=== PATIENT | male | born 1995 | race Caucasian/White ===

== ENCOUNTER 2024-05-04 10:25 | Outpatient (AMB) | payer OTHER, SELFPAY ==
--- NOTE | 2024-05-04 10:25 | A.OFFVIS_ITS ---
Intake Visit Reasons: splinter in finger Intake Note: This patient presents for splinter in finger. Pt c/o; splinter in finger. 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 He says that about a year ago, he hurt his 4th finger on the right with a splinter while working with a shovel. He says he went to the ER at that time but he was told that they could not remove the splinter. He has had this chronic swelling and occasional bleeding from the area since then. She denies any drainage. He does describe discomfort on this finger. [facility] Medical History (Updated 05/04/24 @ 10:58 by Davis Gan MD) Foreign body (FB) in soft tissue Surgical History No pertinent past surgical history Family History Other Family history unknown Social History Unable to assess alcohol history related to: Unknown Alcohol intake: never Patient Tobacco Use Status: Never used Tobacco Review of Systems Const Denies chills and Denies fever(s) Card Denies chest pain, Denies dyspnea and Denies dyspnea on exertion Resp Denies cough, Denies dyspnea and Denies dyspnea on exertion GI Denies hematochezia and Denies change in bowel habits Denies hematuria and Denies difficulty urinating Musc Denies back pain and Denies limited range of motion Neuro Denies focal weakness and Denies convulsions Psych Denies depression and Denies mood swings Physical Exam Const General: comfortable and no acute distress Orientation/consciousness: patient oriented x3 Neck Neck: Yes no lymphadenopathy Resp Auscultation: clear to auscultation bilaterally Cardio Rhythm: regular rhythm GI Palpation (GI): Soft to palpation, nontender and no guarding Neuro General: patient oriented x3 Extrem Other: Fourth finger on the middle phalanx on the palmar aspect -area of induration, and thickening, about 5 mm, dry Office Procedures Office Procedure Office Procedure Documentation Office Procedure Documentation: Preop diagnosis: Foreign body, splinter, 4th finger right Postop diagnosis: The same Procedure: Removal of foreign body from the soft tissue of the 4th finger under local anesthesia The 4th finger on the right was prepped and draped. I used lidocaine to infiltrate the area on the palmar aspect of the middle phalanx. I made an elliptical incision on the area of induration of thickened skin using blade 15. I carried this down through the full-thickness of the skin and subcutaneous fat. This thickened area was excised. I then explored the subcutaneous layer and there was note of a linear, 1.3 cm long splinter. This was removed I irrigated the area and closed the incision with full-thickness nylon 3-0 simple interrupted sutures. Dressings were applied. He tolerated procedure well. There were no immediate complications. There was minimal blood loss. Assessment & Plan Assessment & Plan (1) Foreign body (FB) in soft tissue: Code(s): M79.5 - Residual foreign body in soft tissue Category: Medical Plan: He is certain that there was a splinter that was left in the finger from last year. He wants this removed. I explained the technique of removal of this foreign body under local anesthesia. I explained the risks including but not limited to bleeding, infections, injury to tendon, nerve or vessels as well as the benefits and alternatives The splinter was removed without difficulty. This was about a 1.3 cm long splinter. He tolerated the procedure well. He was given wound care instructions. I will see him for removal of the sutures and about 2 weeks. Coding Level of Care Code New Pt Level 3 (12497) Diagnoses Foreign body (FB) in soft tissue M79.5
== END 2024-05-04 11:25 | disposition home or self-care (01) ==
PROVIDERS: Visit Provider Surgery
DX: M79.5 Residual foreign body in soft tissue (principal)
CPT/HCPCS: 99203

== ENCOUNTER → 2024-05-04 10:25 | Outpatient (BNVA) | payer OTHER, SELFPAY | PROVIDERS: Visit Provider Surgery ==

== ENCOUNTER 2024-05-26 16:22 | Outpatient (REF) | payer OTHER, SELFPAY ==
--- NOTE | ~2024-05-26 | XR_ITS ---
EXAMINATION: XR LUMBOSACRAL SPINE CLINICAL INFORMATION: M54.9 - Dorsalgia, unspecified. COMPARISON: None available. TECHNIQUE: 3 views of the lumbosacral spine. FINDINGS: Minimal levoscoliosis of the lumbar spine. Degenerative changes in the bilateral sacroiliac joints with sclerosis, left greater than right. Facet arthritis in the lower lumbar spine. Anterior compression deformities with loss of height of T12 and L1 vertebral bodies. Anterior loss of height with inferior endplate concavity of L2. Moderate degenerative changes with loss of disc space height at L1-L2, and L2-L3. Loss of disc space height with degenerative changes at L5-S1. XR/XR lumbar spine 2-3V IMPRESSION: Facet arthritis in the lower lumbar spine. Anterior compression deformities with loss of height of T12 and L1 vertebral bodies. Anterior loss of height with inferior endplate concavity of L2. Moderate degenerative changes with loss of disc space height at L1-L2, and L2-L3. Loss of disc space height with degenerative changes at L5-S1. This study was presented today to May 27, 2024 for interpretation. Stat results provided at this time as requested by referring provider. Electronically signed by: Merlyn Walker MD 05/27/2024 11:35 AM DARCIE
== END 2024-05-26 16:23 | disposition home or self-care (01) ==
LOC: HO.XRAY 16:22
PROVIDERS: Visit Provider Surgery
DX: M54.9 Dorsalgia, unspecified (principal); M79.5 Residual foreign body in soft tissue
CPT/HCPCS: 72100

== ENCOUNTER 2024-06-18 15:09 | Outpatient (AMB) | payer OTHER, SELFPAY ==
--- NOTE | 2024-06-18 14:57 | MHC.PC.OV ---
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 Patient endorses back pain for several years with worsening symptoms during the past 2 months. He recalls 2 recent inciting events. The 1st episode involved him picking up his 25 lb 2-year-old son. He immediately felt a sharp pain in his left lower back and fell to the ground. Shortly after that he was working in the backyard and had the recurrence of the same sharp pain and fell to the ground. He was couch bound for about 4 weeks. He did go to urgent care and got prednisone and muscle relaxers which did not help. While the acute pain improved, he continues to have daily moderate to severe pain in the left lower back that radiates down his leg to his foot. It is associated with infrequent tingling and burning down the left leg. He bought a house in the fall, and he believes he also may have injured his back doing all of the moving. 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 He lifts things frequently. He saw a chiropractor for 7 sessions within the past 3 months without improvement. As above he tried bedrest, prednisone and muscle relaxers. Pain is worse when he is lying down trying to sleep. He had an x-ray of the lumbar spine completed on 05/26/2024 which was abnormal showing facet arthritis in the lower lumbar spine, anterior compression deformities with loss of disc height at T12 and L1, anterior loss of height with inferior endplate concavity of L2, moderate degenerative changes with loss of disc height at L1-L2 and L2-L3 and loss of disc height with degenerative changes at L5-S1. Patient denies family history of degenerative disc disease, but he was told that prior treatment for lymphoma (chemo and radiation at age 7) could cause back problems in the future. ROS: Constitutional: No unexplained weight loss, fever, chills, fatigue or night sweats. Neurologic: No loss of bowel or bladder control. No weakness. +paresthesias per HPI Musculoskeletal: See HPI Physical exam: Neurologic: No focal neurological deficits. Symmetric patellar reflexes. Moves all extremities spontaneously. Sensation intact bilaterally. Normal gait. Musculoskeletal: No midline spinal tenderness. Tender left lower back and left lumbar paraspinal muscles. Patient has decreased lumbar flexion and extension and winces with painful movements. Positive left straight leg raise. Lower extremity strength 5/5 bilaterally. Extremities: Warm and well perfused. No clubbing, cyanosis or edema. [facility] Medical History (Updated 06/18/24 @ 16:11 by CHADWICK Conway) History of lymphoma Routine physical examination Abnormal x-ray of lumbar spine Lumbar radiculitis Foreign body (FB) in soft tissue Surgical History (Updated 06/18/24 @ 15:36 by Mara Recio CMA) History of biopsy No pertinent past surgical history Family History (Updated 06/18/24 @ 15:25 by Mara Recio CMA) Maternal Grandfather Diabetes Maternal Grandmother Diabetes Paternal Grandfather Diabetes Maternal Grandmother Diabetes Other Family history unknown Social History Housing: House Unable to assess alcohol history related to: Unknown Alcohol intake: never Patient Tobacco Use Status: Never used Tobacco e-Cigarette/Vaping Use: Never Used service: No Current occupational status: employed 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 Current occupational exposures/hazards: No Cognitive needs: No Hearing needs: No Vision needs: No Questionnaire Thrive Questionnaire Date Thrive assessed: 06/18/24 I am a: Patient What is your living situation today?: I have a steady place to live Within the past 12 months, did the food you bought not last and you didn't have the money to get more?: Never true Within the past 12 months, did you worry whether your food would run out before you got money to buy more?: Never true Do you have trouble paying for medicines?: No Do you have trouble getting transportation to medical appointments?: No Do you have trouble paying your heating and electricity bill?: No Do you have trouble taking care of your child, family member or friend?: No Do you have trouble with day-to-day activities such as bathing, preparing meals, shopping, managing finances, etc.?: No Are you currently unemployed and looking for a job?: No Are you interested in more education?: No Please select the resources that you would like help with: None Currently or been in a relationship where the following occur: No concerns reported THRIVE Score: 0 AUDIT C Alcohol Use Questionnaire (AUDIT-C) 1. How often do you have a drink containing alcohol?: Monthly or less 2. How many drinks containing alcohol do you have on a typical day when you are drinking?: 1 or 2 3. How often do you have six or more drinks on one occasion?: Never Total Score: 1 VALERIE-7 AMB Questionnaire VALERIE-7 Date VALERIE - 7 assessed: 06/18/24 Feeling nervous, anxious, or on edge: 0 = Not at all Not being able to stop or control worryin = Not at all Worrying too much about different things: 0 = Not at all Trouble relaxin = Not at all Being so restless that it is hard to sit still: 0 = Not at all Becoming easily annoyed or irritable: 0 = Not at all Feeling afraid as if something awful might happen: 0 = Not at all Total VALERIE-7 score (0-4 normal; 5-9 mild; 10-14 moderate; 15-21 severe): 0 Source: Developed by Drs. Saurabh Alaniz, Paola Fermin, Jonathan Hurst and colleagues, with an educational sasha from [employer]. VALERIE-7 Assessment Billing VALERIE-7 Assessment Tool: VALERIE-7 Assessment 04769 Physical exam (Primary Care) Vital Signs: Last Vital Signs Pulse 73 06/18/24 15:25 BP 114/74 06/18/24 15:25 Pulse Ox 96 06/18/24 15:25 Oxygen Delivery Method Room Air 06/18/24 15:25 BMI result Body Mass Index 31.0 Tobacco/Smoking Status: Tobacco use Status Tobacco use date assessed 06/18/24 06/18/24 14:58 Patient Tobacco Use Status Never used Tobacco 06/18/24 14:58 e-Cigarette/Vaping Use Never Used 06/18/24 15:29 Thrive Assessment: Date of Thrive Assessment Date Thrive assessed 06/18/24 06/18/24 14:58 Currently or been in a relationship where the following occur: No concerns reported Coding Level of Care Code New Pt Level 4 (04830) Complex EM visit Add On G2211 Diagnoses Lumbar radiculitis M54.16 Abnormal x-ray of lumbar spine R93.7 Additional Codes VALERIE-7 Assessment Billing - VALERIE-7 Assessment Tool: VALERIE-7 Assessment 98388 ([id number]) Assessment & Plan Assessment & Plan (1) Lumbar radiculitis: Code(s): M54.16 - Radiculopathy, lumbar region Category: Medical (2) Abnormal x-ray of lumbar spine: Code(s): R93.7 - Abnormal findings on diagnostic imaging of other parts of musculoskeletal system Category: Medical Plan Given abnormal x-ray and persistent symptoms despite conservative treatments including chiropractic treatment, steroids and muscle relaxers within the past 3 months I have ordered an MRI of the lumbar spine. We discussed referral to physiatry verses neurosurgery pending results. Patient was instructed to call if he does not hear about scheduling within 2 weeks. He will also schedule a physical exam and have fasting labs completed prior to this. He declines pain medications. Orders: Orders Lipid Panel Today M54.16 - Radiculopathy, lumbar region, Z00.00 - Encounter for general adult medical examination without abnormal findings, Z13.6 - Encounter for screening for cardiovascular disorders Comprehensive Met. Panel Today M54.16 - Radiculopathy, lumbar region, Z00.00 - Encounter for general adult medical examination without abnormal findings, Z13.6 - Encounter for screening for cardiovascular disorders MR lumbar spine wo con Today M54.16 - Radiculopathy, lumbar region, R93.7 - Abnormal findings on diagnostic imaging of other parts of musculoskeletal system Complete Blood Count Auto Diff Today M54.16 - Radiculopathy, lumbar region, Z00.00 - Encounter for general adult medical examination without abnormal findings, Z13.6 - Encounter for screening for cardiovascular disorders
[2024-06-18 15:25] VITALS: BP 114/74; PULSE 73; O2SAT 96; BMI 31.0
== END 2024-06-18 16:04 | disposition home or self-care (01) ==
PROVIDERS: PCP Physician Assistant Medical; Visit Provider Physician Assistant Medical
DX: M54.16 Radiculopathy, lumbar region (principal); R93.7 Abnormal findings on diagnostic imaging of other parts of musculoskeletal system

== ENCOUNTER → 2024-06-18 15:09 | Outpatient (BNVA) | payer OTHER, SELFPAY | PROVIDERS: PCP Physician Assistant Medical; Visit Provider Physician Assistant Medical | DX: M54.16 Radiculopathy, lumbar region (principal); R93.7 Abnormal findings on diagnostic imaging of other parts of musculoskeletal system | CPT/HCPCS: 96127 ==

== ENCOUNTER → 2024-07-20 17:35 | Outpatient (BNV) | payer OTHER, SELFPAY | PROVIDERS: PCP Physician Assistant Medical; Visit Provider Radiology Diagnostic Radiology | DX: M51.26 Other intervertebral disc displacement, lumbar region (principal); M47.895 Other spondylosis, thoracolumbar region | CPT/HCPCS: 72148 ==

== ENCOUNTER 2024-07-20 17:49 | Outpatient (REF) | payer OTHER, SELFPAY | END 2024-07-20 17:50 | disposition home or self-care (01) | LOC: HO.MRI 17:49 | PROVIDERS: PCP Physician Assistant Medical; Visit Provider Physician Assistant Medical | DX: M54.16 Radiculopathy, lumbar region (principal) | CPT/HCPCS: 72148 ==

== ENCOUNTER 2024-07-29 08:47 | Outpatient (AMB) | payer OTHER, SELFPAY ==
--- NOTE | 2024-07-29 08:57 | HO.SPINEOV ---
Vital Signs 07/29/24 09:04 Height 5 ft 11 in Weight 210 lb BMI 29.3 Intake Visit Reasons: radiculopathy lumbar region Intake Note: Mr. Wilson is here today c/o low back pain. 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 He is a pleasant 29-year-old male who comes in today with a chief complaint of low back pain and shooting pain down his left lower extremity. He reports this has been ongoing since about April of 2024. He states that he was moving from a apartment to a home, and attempted to lift a very heavy shed with 5 of his friends. When doing this he felt a pop in his back and shooting pain down his left leg. He feels the pain was fairly intense for the next couple of months, however most recently about a month ago the pain reduced by about half, and fairly significant numbness began to set in. The patient reports mild hypoesthesia over his entire left leg down to his toes. He also reports burning over the back side of his left lower extremity. When describing the pain he runs his hand over his posterior buttocks down his posterior thigh over the posterior gastrocnemius to the inferior/lateral aspect of his left foot. He denies any bowel/bladder issues associated with his symptoms.. He denies any saddle anesthesia. He reports that he has taken pain medication and muscle relaxers to help mitigate the pain, however these only temporized his symptoms. He was attempted to go to the chiropractor who was unable to provide much relief for him. He states that positionally, sitting for prolonged periods of time worsens his pain. He feels that walking and/or moving helps to alleviate his pain. 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 Social hx: The patient does not smoke, reports no substance use. Medications: None currently. Allergies: NKDA. Physical exam: The patient has 5/5 strength in his upper and lower extremities. It does elicit pain to full strength testing of his left iliopsoas and left knee extension. He ambulates with an antalgic gait favoring the right side. He has diffuse hypoesthesia over the left lower extremity compared to the right, however this is generally speaking rather mild. His reflexes are 2+ intact. (+) left-sided straight leg raise. (-) Clemens's. (-) clonus. Imaging review: MRI of the lumbar spine completed on 07/20/2024 here at [facility] shows a large disc herniation at L5-S1 causing severe compression of the left-sided exiting nerve root. Impression: Adam is a pleasant 29-year-old male who comes in today with a chief complaint of low back pain and shooting pain down his left lower extremity. He identifies an inciting incident as attempting to lift a very heavy shed with 5 if his friends when moving from an apartment to a house back in April. As a result of this lifting injury he began having shooting pain down his left lower extremity which persists to this visit. About 1 month ago his pain slightly subsided, but was accompanied by newer onset numbness which he feels diffusely throughout his left lower extremity. In addition to this he has a burning type pain that runs in an L5/S1 distribution down his left leg. I had Dr. Costa evaluate the patient alongside me today, and after reviewing his imaging and speaking with the patient Dr. Costa offered the patient a left-sided L5-S1 microdiskectomy to address his left leg pain. The patient understands that we are unsure to what extent his numbness will be relieved by this procedure. Adam was given risk and benefits of surgery including but not limited to infection, hematoma, nerve injury, durotomy, weakness, bowel/bladder injury, persistent pain, as well as the option to continue with conservative treatment and patient wishes to proceed with surgery. They are aware they should stop NSAIDs 7 days prior to surgery. All questions were answered to the best of our ability. If there is anything about this patients medical history that we have overlooked or concerns you have about us proceeding with surgery we would appreciate any input you can offer. Thank you for allowing us to care for your patient. The total time spent with this visit with this patient was 45 minutes reviewing history, physical exam, MRI imaging review, and implementation of treatment plan or further diagnostic testing Issac Costa MD,PhD [facility] Coding Level of Care Code New Pt Level 4 (42164) Diagnoses Left lumbosacral radiculopathy M54.17
[2024-07-29 09:04] VITALS: BMI 29.3
== END 2024-07-29 10:01 | disposition home or self-care (01) ==
PROVIDERS: PCP Physician Assistant Medical; Referring Provider Physician Assistant Medical; Visit Provider Physician Assistant
DX: M54.17 Radiculopathy, lumbosacral region (principal)
CPT/HCPCS: 99204

== ENCOUNTER 2024-08-18 10:49 | Day surgery (SDC) | payer OTHER, SELFPAY ==
[2024-08-10 09:32] VITALS: BMI 29.3
--- NOTE | ~2024-08-18 | FL_ITS ---
EXAMINATION: FL GUIDANCE ONLY HISTORY: L5-S1 Microlumbar discectomy Left COMPARISON: None available. TECHNIQUE: Fluoroscopy time: 3.8 seconds. Cumulative Dose: 2.4853 mGy. DAP: 0.8518 mGym2 Images: 1. FINDINGS: Single fluoroscopic spot film of the lumbar spine in the lateral projection demonstrates a probe directed toward the L5-S1 intervertebral disc space from a posterior approach. FL/FL guidance in OR IMPRESSION: Fluoroscopy during procedure. Please see procedure report for additional information. Electronically signed by: Saurabh Garcia MD 08/18/2024 02:20 PM EDT
[2024-08-18] MEDS: methocarbamoL 750 MG TABLET PO (11:00)
[2024-08-18] MEDS: Lactated Ringers 1,000 ML 100 ML IVCONT (11:01)
[2024-08-18] MEDS: Gabapentin 300 MG CAPSULE PO (11:01)
[2024-08-18 11:07] VITALS: BP 146/88; PULSE 81; RESP 18; TEMP 36.6; O2SAT 98; BMI 29.6
--- NOTE | 2024-08-18 12:14 | MHC.SHP ---
Pre-Procedural Eval Section A - 24 Hr Update-Section A only Date of Service: 08/18/24 The patient is an INPATIENT: No Changes since office visit: No Cold of Flu in the past 2 weeks, No New Medical Problems, No Changes in Medication and No Patient answered all questions The patient has been examined within 24 hours of the surgical procedure. The History & Physical has been completed within 30 days and I have reviewed it.: No Section B - Complete if H&P > 30 days Chief Complaint: Radiculopathy, lumbosacral region Allergies: Allergies Allergy/AdvReac Type Severity Reaction Status Date / Time No Known Allergies Allergy Verified 07/29/24 09:06 Review of Systems Sugical H&P ROS: Negative: Constitution, Cardiovascular, Respiratory, Neurological, Psychiatric, Hem-Onc, Allergic/Immunologic, Gastrointestinal, Genitourinary, Musculoskeletal, Integumentary, Endocrine and Eyes/Ears/Nose/Throat Exam Surgical H&P Exam: Normal: HEENT, Normal: Heart, Normal: Lungs, Normal: Extremities, Normal: Abdomen, Normal: Skin and Normal: Neurological (awake, alert,oriented x 3 ) Plan Diagnosis/Plan: Unchanged left L5-S1 microdiskectomy Time Spent With Patient Time: Total time managing care of this patient today __5__ minutes.
--- NOTE | 2024-08-18 12:15 | P.DS_ITS ---
DS: Providers Provider Date of Service: 08/18/24 Date of discharge: 08/18/24 Primary care physician: CHADWICK Conway Admitting clinician: Daniel Costa DS: Diagnosis Discharge Diagnosis (1) Left lumbosacral radiculopathy: Status: Acute DS: Summary Time Attestation Discharge Coordination Time (in mins): 3 Quality: Safe Use of Opioids Does Pt have an Active Cancer Diagnosis on the Problem List?: No Quality: Stroke Does the patient have a stroke diagnosis?: No Physical Exam Vital Signs: Vital Signs: Last Vital Signs Temp 97.8 F 08/18/24 11:07 Pulse 81 08/18/24 11:07 Resp 18 08/18/24 11:07 BP 146/88 H 08/18/24 11:07 Pulse Ox 98 08/18/24 11:07 O2 Del Method Room Air 08/18/24 11:07 BMI result Body Mass Index 29.6 Discharge Plan Discharge Patient Disposition: Home, Self-Care Referrals: Guerline Santos PA [Primary Care Provider] - 1 Week Discharge Medications: New docusate sodium [Colace] 100 mg capsule 100 mg PO BID Qty: 20 0RF oxycodone 5 mg tablet 5 mg PO Q4H PRN (Reason: pain) Qty: 20 0RF Rx Instructions: Partial Fill upon patient request. Discharge Orders: Discharge Order (Routine); Ordered 08/18/24 Ordered By: Stone Villafuerte Diet: Advance to usual diet Activity on Discharge: As tolerated Activity Restrictions/Additional Instructions: After your spinal surgery we ask you to observe the following restrictions/guidelines: Activity: It is normal to feel some discomfort as you increase your activity, but that will improve with time. We ask you avoid heavy lifting or acitivities that cause pain. As a general rule, 8lbs is a safe limit for lifting right after surgery. Walk as much as you feel comfortable but not to exhaustion. You will feel extra tired the first few days after surgery. Stay well hydrated. It is OK to walk up and down stairs You may return to driving when you are off narcotics (such as vicodin, oxycodone, dilaudid, etc), and you are back to normal functional capacity. If you have any concerns please check with office before driving. Return to work is specific to each patient and each surgery, so please speak with your doctor/PA at first follow up. Please bring paperwork such as FMLA at that time if you need it filled out. Medications: For optimum pain control, it is best to start with a combination of 500 mg of Tylenol every 4 hours with 600 mg of Motrin every 8 hours, and use narcotics as needed in between for breakthrough pain. We will give you a short supply of narcotics after surgery (usually one weeks worth). If you need more please call the office but do not use more than prescribed. You will need to give our office 48 hours notice if you need narcotics refilled and we do not fill narcotics on weekends or evenings. If you are on a narcotic, it is a good idea to take a stool softener such as colace or senna to avoid constipation If you take blood thinner such as aspirin, Plavix, Coumadin, Effient, Eliquis etc for conditions such as Afib, DVT, Pulmonary embolus, coronary disease, stents etc please speak with your surgeon about specific details as to when you can resume these medications. You can resume NSAIDs on post op day 1 (eg: Motrin, Naproxen, etc). Follow up: Please call the office, , after surgery to arrange a 3 week follow up for wound check. Wound Care: You may remove your dressing on the first day after surgery. ?You may ?leave open to air. Please do not remove the steri strips underneath. they will fall off on their own in one week. IT IS NORMAL FOR THE WOUND TO OOZE OR BE BLOODY FOR A FEW DAYS AFTER SURGERY. ?IF THIS HAPPENS JUST PLACE NEW DRESSING OVER IT TO AVOID STAINING CLOTHES. You may shower on post op day # 1 We ask that you do not let the water soak the wound. If it does get wet, just towel dry lightly. Please do not scrub your incision or place any type of chemical/ointment on the wound. No tub baths, pools or jacuzzis for one month. If you have any leaking or redness from your wound, or fevers, please call office Print Language: Nepali
--- NOTE | 2024-08-18 12:36 | P.CONAN_ITS ---
Documented by User: Annabelle Wellington NP 08/11/24 13:59 HPI - Anesthesia Eval Consult details Narrative: 29yo M for Left L5-S1 MicroLumbar discectomy PMFSH Active Problems Active Problems: All Active Problems Left lumbosacral radiculopathy (Acute) History of lymphoma (Acute) Routine physical examination (Acute) Abnormal x-ray of lumbar spine (Acute) Foreign body (FB) in soft tissue (Acute) Past Medical History Medical History (Updated 08/10/24 @ 09:32 by Lou Garber RN) Left lumbosacral radiculopathy History of lymphoma Routine physical examination Abnormal x-ray of lumbar spine Lumbar radiculitis Foreign body (FB) in soft tissue Family History Family History (Updated 06/18/24 @ 15:25 by Mara Recio CMA) Maternal Grandfather Diabetes Maternal Grandmother Diabetes Paternal Grandfather Diabetes Maternal Grandmother Diabetes Other Family history unknown Surgical History Surgical History (Updated 06/18/24 @ 15:36 by Mara Recio CMA) History of biopsy No pertinent past surgical history Social History Social History Housing: House Are you a primary home care and home health aides teacher to a significant other at home: No Do you presently have visiting nurse or other home services: No Unable to assess alcohol history related to: Unknown Alcohol intake: never Patient Tobacco Use Status: Never used Tobacco e-Cigarette/Vaping Use: Never Used Use of substances other than those prescribed or required for medical reasons: No Have you been hit, kicked, punched, or otherwise hurt by someone within the past year? 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 Current occupational exposures/hazards: No Cognitive needs: No Hearing needs: No Vision needs: No Meds Allergies Allergy/AdvReac Type Severity Reaction Status Date / Time No Known Allergies Allergy Verified 07/29/24 09:06 Exam Height,Weight and Vital Signs: Height 5 ft 11 in Weight 95.254 kg Assessment and Plan Assessment Anesthesia Assessment: Chart Reviewed Documented by User: Nancy Catalan DO 08/18/24 12:38 PMFSH Past Medical History Medical History (Updated 08/10/24 @ 09:32 by Lou Garber RN) Left lumbosacral radiculopathy History of lymphoma Routine physical examination Abnormal x-ray of lumbar spine Lumbar radiculitis Foreign body (FB) in soft tissue Family History Family History (Updated 06/18/24 @ 15:25 by Mara Recio CMA) Maternal Grandfather Diabetes Maternal Grandmother Diabetes Paternal Grandfather Diabetes Maternal Grandmother Diabetes Other Family history unknown Family history of problems with anesthesia: No Surgical History Surgical History (Updated 06/18/24 @ 15:36 by Mara Recio CMA) History of biopsy No pertinent past surgical history History of Problems with Anesthesia: No Social History Social History Housing: House Are you a primary home care and home health aides teacher to a significant other at home: No Do you presently have visiting nurse or other home services: No Unable to assess alcohol history related to: Unknown Alcohol intake: never Patient Tobacco Use Status: Never used Tobacco e-Cigarette/Vaping Use: Never Used Use of substances other than those prescribed or required for medical reasons: No Have you been hit, kicked, punched, or otherwise hurt by someone within the past year? 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 Current occupational exposures/hazards: No Cognitive needs: No Hearing needs: No Vision needs: No Meds Allergies Allergy/AdvReac Type Severity Reaction Status Date / Time No Known Allergies Allergy Verified 07/29/24 09:06 Exam Exam Date and Time: 08/18/24 1235 Height,Weight and Vital Signs: Height 5 ft 11 in Weight 95.254 kg Vital Signs Temperature 97.8 F 08/18/24 11:07 Pulse Rate 81 08/18/24 11:07 Respiratory Rate 18 08/18/24 11:07 Blood Pressure 146/88 H 08/18/24 11:07 Pulse Oximetry 98 08/18/24 11:07 Oxygen Delivery Method Room Air 08/18/24 11:07 Temperature 97.8 F 08/18/24 11:07 Pulse Rate 81 08/18/24 11:07 Respiratory Rate 18 08/18/24 11:07 Blood Pressure 146/88 H 08/18/24 11:07 Pulse Oximetry 98 08/18/24 11:07 Oxygen Delivery Method Room Air 08/18/24 11:07 Airway Mallampati Class: I TM Dist: >3cm Neck ROM: Full Loose/Missing/Broken Teeth: No (patient denies any loose or broken teeth) Heart: S1S2 Lungs: CTAB Assessment and Plan Assessment Anesthesia Assessment: Anesthesia Plan Discussed and Chart Reviewed Final Anesthetic Review Family History of Problems with Anesthesia: No History of Problems with Anesthesia: No NPO: Yes ASA Class: II Final Preanesthetic Review: No Changes in Pt Med Stat, Meds/Allgs Chart Reviewed, Consent Obtained/Reviewed and Anes Risks/Benef Reviewed Patient Risk: Low Procedure Risk: Low Anesthetic Plan Anesthetic Plan: GA and Agree w/ Assess. and Plan Disposition: Standard PACU
--- NOTE | 2024-08-18 13:20 | W.PM.OPN ---
Operative Note Operative Note Date of Service: 08/18/24 Narrative: Preoperative diagnosis: Left S1 radiculopathy due to disc herniation Postoperative diagnosis: Same Procedure: Left L5-S1 microdiskectomy with microscope Surgeon: Daniel Costa MD, PhD Oriental Rug Repairer: madeleine Colmenares This patient is suffering from a left S1 radiculopathy due to a large extruded disc herniation compressing the left S1 nerve root. Conservative treatment failed. The patient was offered a lumbar microdiskectomy to decompress the nerve root. The procedure complications were explained. The patient was consented. The patient was brought to the operating room and endotracheally intubated. The patient was turned in a prone position on the Ronnie frame. Prepping and draping was done followed by time-out. A mid lumbar incision was made followed by release of the paravertebral muscles on the left side to expose the L5-S1 interspace. An intraoperative x-rays obtained to confirm the correct level. The microscope was brought in. A left L5 laminotomy was done followed by opening of the flavum ligament. The S1 nerve root was identified and retracted medially to expose the L5-S1 disc space. I could palpate a large disc herniation medial from the S1 nerve root, which I carefully removed with a pituitary. A piece of approximately 3 x 2 cm was removed. The disc space was inspected and any residual disc fragments were removed. More disc material was found lateral from the S1 nerve root and resected. This resulted in an excellent decompression of the S1 nerve root. The reddish discoloration of the nerve root returned to normal Hemostasis was done. The microscope was removed. Marcaine was injected intramuscularly.The incision was closed in two layers. Steri-Strips used to approximate the incision. An op-site were taken there was used to cover the incision. All sponge and needle counts were correct. Patient was extubated and transported in stable condition to recovery room. this procedure was done with the aid of a physician bilingual medical assistant who performed the initial exposure until the microscope was brought in and performed the closure of the incision. Anesthesia: General Blood loss: 10 mL Complications: None Specimen: None Surgical time: 45 min Disposition: Discharge home
[2024-08-18 14:16] VITALS: BP 99/57; PULSE 77; RESP 16; TEMP 36.8; O2SAT 96
[2024-08-18 14:21] VITALS: BP 107/56; PULSE 77; RESP 16; O2SAT 100
[2024-08-18 14:26] VITALS: BP 102/66; PULSE 73; RESP 20; O2SAT 99
[2024-08-18 14:31] VITALS: BP 123/66; PULSE 74; RESP 20; O2SAT 99
[2024-08-18 14:46] VITALS: BP 115/65; PULSE 84; RESP 20; O2SAT 97
[2024-08-18] MEDS: oxyCODONE HCl Immed Release 5 MG TABLET PO (14:46)
== END 2024-08-18 15:09 | disposition home or self-care (01) ==
PROVIDERS: PCP Physician Assistant Medical; Visit Provider Neurological Surgery
PROC: (CPT 63030; principal; 2024-08-18 13:00)
DX: M51.17 Intervertebral disc disorders with radiculopathy, lumbosacral region (principal); M54.50 Low back pain, unspecified; R26.89 Other abnormalities of gait and mobility; Z85.72 Personal history of non-Hodgkin lymphomas
CPT/HCPCS: 63030; J0131; J0690; J1100; J1885; J2003; J2250; J2405; J2704; J3010

== ENCOUNTER → 2024-08-18 10:49 | Outpatient (BNV) | payer OTHER, SELFPAY | PROVIDERS: PCP Physician Assistant Medical; Visit Provider Neurological Surgery | DX: M54.17 Radiculopathy, lumbosacral region (principal) | CPT/HCPCS: 63030; 99499 ==

== ENCOUNTER 2024-08-28 08:32 | Outpatient (REF) | payer OTHER, SELFPAY ==
[2024-08-28 11:19] LABS: MANUAL DIFF FLAG NO
[2024-08-28 11:31] LABS: Basophils Percent Auto 0.5 % (0-2); Eosinophils Absolute Auto 0.1 X10*3/uL (0.0-0.4); Hematocrit 39.1 % (42.0-52.0); Hemoglobin 12.9 g/dl (14.0-18.0); Imm Gran Abs Auto 0.03 X10*3/uL (0.00-0.03); Imm Gran Pct Auto 0.5 % (0.0-0.4); Lymphocytes Absolute Auto 1.1 X10*3/uL (1.2-4.9); Lymphocytes Percent Auto 17.4 % (20-40); Mean Corpuscular Volume 87.9 fL (80.0-98.0); Mean Platelet Volume 10.5 fL (9.4-12.4); Monocytes Absolute Auto 0.6 X10*3/uL (0.1-1.2); Monocytes Percent Auto 9.6 % (2-11); Neutrophils Absolute Auto 4.6 x10*3/uL (2.0-8.3); Platelet Count 289 X10*3/uL (160-400); Red Blood Count 4.45 X10*6/uL (4.60-5.80); Red Cell Distribution Width 13.3 % (11.0-16.0); White Blood Count 6.6 X10*3/uL (4.8-10.8)
[2024-08-28 11:35] LABS: Alanine Aminotransferase 34 U/L (0-40); Albumin Level 4.4 g/dL (3.5-5.0); Alkaline Phosphatase 86 U/L (39-117); Anion Gap 10 (12-20); Aspartate Amino Transferase 28 U/L (5-37); Bilirubin Total 0.6 mg/dL (0.0-1.0); Blood Urea Nitrogen 15 mg/dL (9-16); Calcium 9.8 mg/dL (8.4-10.2); Carbon Dioxide 28 mmol/L (22-29); Chloride 105 mmol/L (96-108); Cholesterol 177 mg/dL (<200); Estimated Glomerular Filt Rate > 60; Glucose Random 94 mg/dL (60-115); HDL Cholesterol 76 mg/dL (>40); LDL Cholesterol Calculated 79 mg/dL (<100); Potassium 4.4 mmol/L (3.3-5.1); Sodium 139 mmol/L (135-145); Total Protein 7.7 g/dL (6.5-8.0); Triglycerides 111 mg/dL (<150)
== END 2024-08-28 08:33 | disposition home or self-care (01) ==
LOC: HO.WFDLDS 08:32
PROVIDERS: Visit Provider Physician Assistant Medical
DX: Z00.00 Encounter for general adult medical examination without abnormal findings (principal); Z13.6 Encounter for screening for cardiovascular disorders; M54.16 Radiculopathy, lumbar region
CPT/HCPCS: 36415; 80053; 80061; 85025

== ENCOUNTER 2024-08-31 16:13 | Outpatient (AMB) | payer OTHER, SELFPAY ==
--- NOTE | 2024-08-31 16:15 | A.OFFPC_ITS ---
Vital Signs 08/31/24 16:18 08/31/24 16:41 Height 5 ft 11 in Weight 221 lb 4 oz BMI 30.9 BP 137/69 127/62 Blood Pressure Location Rt brachial Position Sitting Respiration 13 Pulse 69 Pulse Source Pulse Oximeter Temp 98.8 F Temp Source Temporal Artery Scan Pulse Oximetry (%) 100 Oxygen Delivery Method Room Air Intake Visit Reasons: annual physical exam Intake Note: annual physical Research Associate Required: No Allergies No Known Allergies Allergy (Verified 08/31/24 16:16) Tobacco use date assessed: 08/31/24 Dental Screening Dental Screen Date: 08/31/24 Did you have a dental visit in the last 12 months?: Yes Did you have a dental problem in the last 6 months where you did not have access to dental care?: No Was dental information given to patient?: Yes HPI HPI Comments History of Present Illness Details This is a 29-year-old male with a past medical history of lymphoma and lumbosacral radiculopathy presenting for a physical exam. Patient has a 3-year-old son in 8-year-old daughter. Living with his children and his fiancee. They just got a soto retriever puppy. The patient underwent left L5-S1 microdiskectomy with Dr. Costa on 08/18/2024. There were no complications. Patient is doing well. He has a little bit of pain in his lower back, but all of his other symptoms have resolved. He has a postop follow up appointment with his surgeon. We reviewed his blood work from 08/28/2024. Patient has mild anemia which is likely postoperative anemia. He has no blood in his stools, fatigue, shortness of breath or abnormal bruising. His other lab results are normal. Declines influenza vaccine. Patient advised to schedule eye and dental exams. ROS: Constitutional: No unexplained weight loss, fever, chills, fatigue or night sweats. Eyes: No vision changes, blurry vision, double vision, eye pain, eye redness, eye discharge. ENT: No hearing loss, sneezing, congestion, runny nose or sore throat. Respiratory: No shortness of breath, cough or sputum production. Cardiovascular: No chest pain, chest pressure or chest discomfort. No palpitations or pedal edema. Gastrointestinal: No anorexia, nausea, vomiting or diarrhea. No abdominal pain or blood in stool. Genitourinary: No dysuria, hematuria, urinary frequency. Neurologic: No headache, dizziness, syncope, unilateral weakness, ataxia, numbness or tingling in the extremities. Musculoskeletal: See HPI Hematologic/Lymphatics: No bleeding or bruising. No painful lymph nodes. Skin: No rash or itching. Endocrine: No cold or heat intolerance. No polyuria or polydipsia. Psychiatric: No depression or anxiety. No SI/HI. Physical exam: Constitutional: Alert, in no distress. Head: Normocephalic. Eyes: Pupils are equal, round and reactive to light. Extraocular muscles intact. Ear, Nose and Throat: Canals clear. TMs normal. Normal nasal mucosa. No nasal discharge. No oral lesions. Neck: Supple, Full range of motion. No lymphadenopathy. No palpable thyroid masses. Respiratory: Clear to auscultation. Cardiovascular: S1 S2 regular. No murmurs. Gastrointestinal: Abdomen soft, non-tender, non-distended. Normal bowel sounds. No palpable masses. Genitourinary: Patient deferred. Neurologic: No focal neurological deficits. Symmetric patellar reflexes. Moves all extremities spontaneously. Sensation intact bilaterally. Skin: The patient has a mildly erythematous bumpy rash in the shape of the adhesive bandage that was on his lower back that is consistent with contact dermatitis. Patient says it is itchy but improving. Musculoskeletal: No gross deformities. Normal range of motion. Extremities: Warm and well perfused. No clubbing, cyanosis or edema. Symmetric peripheral pulses. Psychiatric: Normal mood and affect [facility] Medical History (Updated 08/31/24 @ 16:36 by CHADWICK Conway) Mild anemia Left lumbosacral radiculopathy History of lymphoma Routine physical examination Abnormal x-ray of lumbar spine Lumbar radiculitis Foreign body (FB) in soft tissue Surgical History (Updated 08/31/24 @ 17:01 by CHADWICK Conway) History of microdiscectomy History of biopsy No pertinent past surgical history Family History (Updated 06/18/24 @ 15:25 by Mara Recio CMA) Maternal Grandfather Diabetes Maternal Grandmother Diabetes Paternal Grandfather Diabetes Maternal Grandmother Diabetes Other Family history unknown Social History Housing: House Are you a primary patient care technician instructor to a significant other at home: No Do you presently have visiting nurse or other home services: No Unable to assess alcohol history related to: Unknown Alcohol intake: never Comment: medicated Patient Tobacco Use Status: Never used Tobacco e-Cigarette/Vaping Use: Never Used service: No Current occupational status: employed Current occupation: [employer] Current occupational exposures/hazards: No Cognitive needs: No Hearing needs: No Vision needs: No Questionnaire Thrive Questionnaire Date Thrive assessed: 08/31/24 I am a: Patient What is your living situation today?: I have a steady place to live Within the past 12 months, did the food you bought not last and you didn't have the money to get more?: Never true Within the past 12 months, did you worry whether your food would run out before you got money to buy more?: Never true Do you have trouble paying for medicines?: No Do you have trouble getting transportation to medical appointments?: No Do you have trouble paying your heating and electricity bill?: No Do you have trouble taking care of your child, family member or friend?: No Do you have trouble with day-to-day activities such as bathing, preparing meals, shopping, managing finances, etc.?: No Are you currently unemployed and looking for a job?: No Are you interested in more education?: No Please select the resources that you would like help with: None Currently or been in a relationship where the following occur: No concerns reported THRIVE Score: 0 VALERIE-7 AMB Questionnaire VALERIE-7 Date VALERIE - 7 assessed: 08/31/24 Source: Developed by Drs. Saurabh Alaniz, Paola Fermin, Jonathan Hurst and colleagues, with an educational sasha from [employer]. Physical exam (Primary Care) Vital Signs: Last Vital Signs Temp 98.8 F 08/31/24 16:18 Pulse 69 08/31/24 16:18 Resp 13 08/31/24 16:18 BP 137/69 08/31/24 16:18 Pulse Ox 100 08/31/24 16:18 Oxygen Delivery Method Room Air 08/31/24 16:18 BMI result Body Mass Index 30.9 Tobacco/Smoking Status: Tobacco use Status Tobacco use date assessed 08/31/24 08/31/24 16:21 Patient Tobacco Use Status Never used Tobacco 03/24/25 16:21 e-Cigarette/Vaping Use Never Used 08/31/24 16:21 Thrive Assessment: Date of Thrive Assessment Date Thrive assessed 08/31/24 08/31/24 16:21 Currently or been in a relationship where the following occur: No concerns reported Coding Level of Care Code Est Pt Prev Care 18-39y([id number]) Diagnoses Routine physical examination Z00.00 Mild anemia D64.9 Left lumbosacral radiculopathy M54.17 Assessment & Plan Assessment & Plan (1) Routine physical examination: Code(s): Z00.00 - Encounter for general adult medical examination without abnormal findings Category: Medical Plan: Patient is seen today for a routine physical. As part of this visit we reviewed the following issues, which are considered and essential part of preventative health in this age group: - Testicular cancer screening, which includes self exam teaching - Blood pressure screening - Cholesterol screening - Nutritional and exercise counseling - Counseling of injury prevention including fire prevention, smoke alarms and seat belt usage - Screening for depression - Prevention of and/or testing for infectious diseases - Recommendations about immunizations - Recommendation of an eye exam - Screening for substance abuse (2) Mild anemia: Code(s): D64.9 - Anemia, unspecified Category: Medical Plan: Likely postoperative anemia. Recheck CBC in 6 weeks. (3) Left lumbosacral radiculopathy: Code(s): M54.17 - Radiculopathy, lumbosacral region Category: Medical Plan: Patient is doing well. He has a follow up scheduled with his surgeon. Plan Follow up in 1 year for annual physical exam. Orders: Orders Complete Blood Count Auto Diff Today D64.9 - Anemia, unspecified
[2024-08-31 16:18] VITALS: BP 137/69; PULSE 69; RESP 13; TEMP 37.1; O2SAT 100; BMI 30.9
[2024-08-31 16:41] VITALS: BP 127/62
== END 2024-08-31 16:49 | disposition home or self-care (01) ==
LOC: HO.HMCFM 16:13
PROVIDERS: PCP Physician Assistant Medical; Visit Provider Physician Assistant Medical
DX: Z00.00 Encounter for general adult medical examination without abnormal findings (principal); D64.9 Anemia, unspecified; M54.17 Radiculopathy, lumbosacral region

== ENCOUNTER 2024-09-08 14:59 | Outpatient (AMB) | payer OTHER, SELFPAY ==
--- NOTE | 2024-09-08 15:02 | A.SPINEOV_ITS ---
Intake Visit Reasons: 1st post op Intake Note: Mr. Wilson is here today for his 1st post op. Rehabilitation Psychologist Required: No Allergies No Known Allergies Allergy (Verified 09/08/24 15:02) Assessment & Plan Assessment & Plan (1) Left lumbosacral radiculopathy: Code(s): M54.17 - Radiculopathy, lumbosacral region Category: Medical Plan Procedure: Left L5-S1 microdiskectomy Adam is a pleasant 29 year old male who comes in today for his 1st postoperative visit after having a left-sided L5-S1 microdiskectomy completed by Dr. Costa. He reports that he has been doing great since surgery, and denies any continued left leg pain. Overall, he is very satisfied with the surgery. He is not taking any pain medication at this time. He asked several questions regarding the postoperative healing course, all of which I answered to the best of my ability. 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 No new neurological deficits. The patient ambulates well and rises from a seated position without difficulty. His posterior incision site is closed and well healing. No signs of drainage. I would like Adam to follow up with us on an as-needed basis as he is doing so well since surgery. Issac Costa MD,PhD [facility] Coding Level of Care Code Global (13985) Diagnoses Left lumbosacral radiculopathy M54.17
== END 2024-09-08 15:14 | disposition home or self-care (01) ==
LOC: HO.HNS 15:00
PROVIDERS: PCP Physician Assistant Medical; Visit Provider Physician Assistant
DX: M54.17 Radiculopathy, lumbosacral region (principal)
CPT/HCPCS: 99024

== ENCOUNTER → 2024-09-08 14:59 | Outpatient (BNVA) | payer OTHER, SELFPAY | PROVIDERS: PCP Physician Assistant Medical; Visit Provider Physician Assistant ==